=== PATIENT | female | born 1960 | race African-American/Black ===

== ENCOUNTER 2017-02-09 18:23 | Emergency (ER) | payer SELFPAY ==
--- NOTE | ~2017-02-09 | CR72 ---
[facility]. [facility] A Service of [facility] & [facility] RADIOLOGY TEXT RESULTS PATIENT: THU FRENCH LOCATION: SED : 56 UNIT #: [id number] AGE: [address]: Maria Del Carmen Prince SEX: F ORDER DR: [id number] [address] [id number] MR#: [id number] Acc #: [id number] NAME: THU FRENCH : 1960 SEX: F STUDY DATE/TIME: 02/09/2017 18:29 UNIT: SED ROOM: STUDY DESCRIPTION: CR Chest Single View Portable Attending Physician: Maria Del Carmen Prince Pa-C Ordering Physician: Physician Non-Staff Primary Care Physician: Ibrahima Costa Jr., M.D. MEDICAL IMAGING REPORT This report is preliminary unless electronic signature is present. EXAM Portable chest, 02/09/2017 HISTORY Cough for 3 weeks. FINDINGS The heart is normal in size. The lungs are hyperinflated with emphysematous and fibrotic changes characteristic of COPD. More focal fibrosis right upper lobe. No airspace consolidation is seen. There are no pleural effusions. IMPRESSION COPD. No active pulmonary disease. Dictated by... Richard Arana M.D. THIS IS AN ELECTRONICALLY VERIFIED REPORT Richard Arana M.D. at 02/10/2017 10:50 AM ALEKSANDAR/lucho TD: 02/10/2017 01:14 JOB #: [id number] MEDICAL IMAGING REPORT
[~2017-02-09 18:23] MED LIST: ALBUTEROL17 G1 IH; ALBUTEROL17 GM INH; AMOXICILLIN; CERTAGEN PO; COLACE PO; FLEXERIL; FLEXERIL10 MG PO; HYCODAN60 ML 5MG/ PO; IBUPROFEN PO; IRON PO; IRON1 TAB; IRON325 ( 651 PO; MULTI VITAMIN1 EACH; NAPROXEN PO; NO MEDICATIONS; PREDNISONE PO; PREDNISONE10 MG PO; PREDNISONE50 MG PO; ROBAXIN500 MG PO; ULTRAM PO; VIBRAMYCIN100 M1 PO; VOLTAREN75 MG PO; ZITHROMAX1 G/PKT PO
[2017-02-09 18:47] LABS: INFLUENZA A POS (NEG); INFLUENZA B NEG (NEG)
== END 2017-02-09 19:07 | disposition home or self-care (01) ==
LOC: SED 18:23
PROVIDERS: Physician Assistant
DX: J10.1 Influenza due to other identified influenza virus with other respiratory manifestations (principal); M62.838 Other muscle spasm; J45.909 Unspecified asthma, uncomplicated; F17.200 Nicotine dependence, unspecified, uncomplicated; Z88.0 Allergy status to penicillin
CPT/HCPCS: 71010; 87804; 99283